=== PATIENT | female | born 1995 | race Caucasian/White ===

== ENCOUNTER 2023-02-11 06:58 | Inpatient (IN) | payer OTHER ==
[2023-02-11 07:26] VITALS: BP 133/68
[2023-02-11 08:12] LABS: HEMOGLOBIN 10.4 g/dL (12.0-18.0); MCH 24.6 (27-36); MCHC 32.5 g/dl (30-36); MCV 75.7 fl (81-99); RBC 4.23 M/ul (4.3-5.7); RDW 15.9 (10.5-15.0)
[2023-02-11 08:50] LABS: AMPHETAMINES, UR NEGATIVE (NEGATIVE); BARBITURATES, UR NEGATIVE (NEGATIVE); BENZODIAZEPINES, UR NEGATIVE (NEGATIVE); BUPRENORPHINE,UR NEGATIVE (NEGATIVE); COCAINE, UR NEGATIVE (NEGATIVE); MARIJUANA (THC), UR NEGATIVE (NEGATIVE); MDMA, UR NEGATIVE (NEGATIVE); METHADONE, UR NEGATIVE (NEGATIVE); METHAMPHETAMINE, UR NEGATIVE (NEGATIVE); OPIATES, UR NEGATIVE (NEGATIVE); OXYCODONE, UR NEGATIVE (NEGATIVE); PHENCYCLIDINE, UR NEGATIVE (NEGATIVE); TRICYCLIC ANTIDEPRESSANT, UR NEGATIVE (NEGATIVE)
[2023-02-11 08:53] LABS: ABO B; ANTIBODY SCREEN NEGATIVE; RH POSITIVE
[2023-02-11 21:00] LABS: INFLUENZA B NAA NEGATIVE (NEGATIVE); RESPIRATORY SYNCYTIAL VIR NAA NEGATIVE (NEGATIVE)
[2023-02-12 05:25] LABS: HEMATOCRIT 27.1 % (35.0-50.0); HEMOGLOBIN 8.7 g/dL (12.0-18.0); MCH 24.7 (27-36); MCHC 32.2 g/dl (30-36); MCV 76.5 fl (81-99); RBC 3.54 M/ul (4.3-5.7); RDW 15.8 (10.5-15.0)
== END 2023-02-12 15:50 | disposition home or self-care (01) | DRG 807 ==
LOC: FBCO 06:58 → FBC 07:03
PROVIDERS: Obstetrics & Gynecology; ADMIT Obstetrics & Gynecology; ATTEND Obstetrics & Gynecology
PROC: 10E0XZZ Delivery of Products of Conception, External Approach (ICD-10-PCS; principal; 2023-02-11)
PROC: 3E0R3BZ Introduction of Anesthetic Agent into Spinal Canal, Percutaneous Approach (ICD-10-PCS; 2023-02-11)
PROC: 00HU33Z Insertion of Infusion Device into Spinal Canal, Percutaneous Approach (ICD-10-PCS; 2023-02-11)
PROC: 10907ZC Drainage of Amniotic Fluid, Therapeutic from Products of Conception, Via Natural or Artificial Opening (ICD-10-PCS; 2023-02-11)
PROC: 10H07YZ Insertion of Other Device into Products of Conception, Via Natural or Artificial Opening (ICD-10-PCS; 2023-02-11)
DX: O48.0 Post-term pregnancy (principal); Z37.0 Single live birth; O99.344 Other mental disorders complicating childbirth; F41.9 Anxiety disorder, unspecified; F32.A Depression, unspecified; Z20.822 Contact with and (suspected) exposure to COVID-19; Z3A.40 40 weeks gestation of pregnancy
CPT/HCPCS: 36415; 85027; 86850; 86900; 86901; 87502; A9270; J2590; J2795; J3010; J7121; U0002